=== PATIENT | male | born 1990 | race African-American/Black ===

== ENCOUNTER 2024-08-25 05:50 | Day surgery (SDC) | payer OTHER, MEDICAID ==
[~2024-08-25] VITALS: Ht 182.9 cm; Wt 61.7 kg
[2024-08-25] MEDS ORDERED: NS IRRIG SOLN 1000 ML IR ONE (07:53)
[2024-08-25] MEDS ORDERED: PROPOFOL 200MG/ 20ML VIAL (DIPRIVAN) IV ONE (07:53)
[2024-08-25] MEDS ORDERED: LIDOCAINE HCL/PF 1% 10 ML AMPUL INJ ONE (07:53)
[2024-08-25] MEDS ORDERED: ceFAZolin SODIUM 1 GM VIAL ONE (07:53)
[2024-08-25] MEDS ORDERED: ONDANSETRON HCL 4 MG/2 ML VIAL ONE (07:53)
[2024-08-25] MEDS ORDERED: BUPIVACAINE /PF 0.25% 10 ML VIAL INJ ONE (07:53)
[2024-08-25] MEDS ORDERED: DEXAMETHASONE SOD PHOSPHATE 4 MG/ML VIAL ONE (07:53)
[2024-08-25] MEDS ORDERED: LR 1,000 ML IV.SOLN IV ONE (07:53)
[2024-08-25] MEDS ORDERED: SEVOFLURANE 15 MIN GAS INH ONE (07:53)
[2024-08-25] MEDS ORDERED: METOCLOPRAMIDE HCL 10 MG/2 ML VIAL ONE (07:53)
[2024-08-25] MEDS ORDERED: LR 1,000 ML IV SCH (10:00)
[2024-08-25 10:42] VITALS: O2SAT 97
[2024-08-25 12:08] VITALS: BP_SYST 109; PULSE 57; RESP 18
== END 2024-08-25 11:25 | disposition home or self-care (01) ==
LOC: SMU 05:50 → SDS 05:50
PROVIDERS: ATTEND Student in an Organized Health Care Education/Training Program
DX: N31.9 Neuromuscular dysfunction of bladder, unspecified (principal); M41.84 Other forms of scoliosis, thoracic region; E11.40 Type 2 diabetes mellitus with diabetic neuropathy, unspecified; Z79.899 Other long term (current) drug therapy; Z98.890 Other specified postprocedural states; Z95.828 Presence of other vascular implants and grafts; Z86.718 Personal history of other venous thrombosis and embolism; Z99.81 Dependence on supplemental oxygen
CPT/HCPCS: 51102; 71045; J3490; J1100; J2003; J2405; J2704; J7120; C2627; J0690; J2765